=== PATIENT | female | born 1945 | race Caucasian/White ===

== ENCOUNTER → 2016-12-13 | Outpatient (CLI) | payer OTHER ==
[~2016-12-13] MED LIST: ADVIN10/60 INH; ASPI1TAB83 PO; CLTP PO; CNT PO; MELO15TA3 PO; MOME50SP5; SYN112 PO
== END | disposition home or self-care (01) ==
LOC: C.RDSM 12:52
PROVIDERS: ATTEND Orthopaedic Surgery Sports Medicine
DX: Z96.653 Presence of artificial knee joint, bilateral (principal)

== ENCOUNTER 2024-05-21 12:32 | Inpatient (IN) ==
--- NOTE | 2024-05-21 13:46 | Electrocardiogram Report ---
Test Reason : Blood Pressure : */* mmHG Vent. Rate : 97 BPM Atrial Rate : 97 BPM P-R Int : 150 ms QRS Dur : 82 ms QT Int : 334 ms P-R-T Axes : 53 67 66 degrees QTcB Int : 424 ms Normal sinus rhythm Normal ECG Confirmed by Demetrius Tariq ([id number]) on 05/21/2024 1:46:22 PM Referred By: Confirmed By: Demetrius Tariq
[2024-05-21 13:49] LABS: Basophils # (auto) 0.03 K/uL (0.00-0.20); Basophils % (auto) 0.3 %; Eosinophils # (auto) 0.05 K/uL (0.00-0.50); Eosinophils % (auto) 0.5 %; Hematocrit (blood only) 41.7 % (37.0-47.0); Hemoglobin 13.3 g/dl (12.0-16.0); Immature Granulocytes # (auto) 0.04 K/uL (0.01-0.20); Immature Granulocytes % (auto) 0.4 %; Lymphocytes # (auto) 2.35 K/uL (1.20-3.40); Lymphocytes % (auto) 21.6 %; Mean Corpuscular Hemoglobin 26.5 pg (25.0-34.0); Mean Corpuscular Hgb Conc 31.9 g/dL (32.0-36.0); Mean Corpuscular Volume 83.2 fL (80.0-100.0); Mean Platelet Volume 10.9 fL (9.4-12.4); Monocytes # (auto) 0.97 K/uL (0.11-0.59); Monocytes % (auto) 8.9 %; Neutrophils # (auto) 7.44 K/uL (1.40-6.50); Neutrophils % (auto) 68.3 %; Platelet Count 111 K/uL (130-400); RDW Coefficient of Variation 16.8 % (11.5-14.5); RDW Standard Deviation 50.1 fL (36.4-46.3); Red Blood Count 5.01 M/uL (4.20-5.40); White Blood Count 10.88 K/ul (4.8-10.8)
[2024-05-21 14:04] LABS: Albumin Globulin Ratio 1.3 (0.9-2); Albumin Level 3.2 gm/dl (3.4-5.0); BUN Creatinine Ratio 19.7 (10-20); Bilirubin,Total 0.5 mg/dl (0.2-1.0); Calcium 8.9 mg/dl (8.6-10.3); Creatinine Clr Calc Pharmacy 40.8 ml/min; Globulin 2.5 gm/dl (2.5-4.0); Potassium 3.9 mmol/L (3.5-5.1); Total Protein 5.7 gm/dl (6.0-8.3)
[2024-05-21 14:13] LABS: Troponin I High Sensitivity 53.2 pg/ml (0-14)
--- NOTE | 2024-05-21 14:18 | XRay Report ---
XR chest 1V portable HISTORY: 79 years-old Female Dyspnea acute shortness of breath COMPARISON: 01/08/2024 TECHNIQUE: AP view of the chest FINDINGS: Cardiac silhouette is enlarged. Mild chronic interstitial coarsening. No pneumothorax, pleural effusi on or lobar airspace consolidation. Bones appear grossly intact. IMPRESSION: Cardiomegaly without acute process. ACT 112: Negative or not required by law. The above report was generated using voice recognition software. It may contain grammatical, syntax o r spelling errors. Electronically signed by: Magdi Peña M.D. 05/21/2024 2:17 PM
[2024-05-21 14:30] LABS: Adenovirus PCR Not Detected (NotDetected); Bordetella parapertussis PCR Not Detected (NotDetected); Bordetella pertussis PCR Not Detected (NotDetected); Chlamydia pneumoniae PCR Not Detected (NotDetected); Coronavirus 229E PCR Not Detected (NotDetected); Coronavirus CoV-2 (COVID19)PCR Not Detected (NotDetected); Coronavirus HKU1 PCR Not Detected (NotDetected); Coronavirus NL63 PCR Not Detected (NotDetected); Coronavirus OC43PCR Not Detected (NotDetected); Human Metapneumovirus PCR Not Detected (NotDetected); Influenza A PCR Not Detected (NotDetected); Influenza B PCR Not Detected (NotDetected); Mycoplasma pneumoniae PCR Not Detected (NotDetected); Parainfluenza Virus 1 PCR Not Detected (NotDetected); Parainfluenza Virus 2 PCR Not Detected (NotDetected); Parainfluenza Virus 3 PCR Not Detected (NotDetected); Parainfluenza Virus 4 PCR Not Detected (NotDetected); Respiratory Syncytial VirusPCR Not Detected (NotDetected); Rhinovirus/Enterovirus PCR Not Detected (NotDetected)
[2024-05-21] MEDS: OPTIRAY 320 125ml IV ONE (14:39)
--- NOTE | 2024-05-21 14:39 | Emergency Department Note ---
Impression & Plan Pulmonary embolism, Elevated troponin, Hypoxia ED Provider Note NAME: KATHY GARNER AGE: 79 SEX: F : 1945 ARRIVES VIA: Walk-In INFORMANT: Patient, ED PROVIDER(S): Russ Bronson MD CHIEF COMPLAINT: Shortness of breath HPI: This is 79-year-old female with history of asthma/pulm hypertension presented for shortness of breath. Patient notes over the past 1 week she has had increasing difficulty walking distances. She notes that whenever she does walk she feels short of breath and has to stop. At this time she is medically get more than 10 feet. This is progressively worsened. She has no significant leg swelling. No fever, chills, nausea or vomiting. No cough or congestion. No wheezing. ROS: See above HPI for pertinent positives & negatives. A total of 10 systems reviewed and were otherwise negative. PAST MEDICAL HISTORY: See Below PAST SURGICAL HISTORY: See Below FAMILY HISTORY: See Below SOCIAL HISTORY: See Below HOME MEDICATIONS: See Below ALLERGIES: See Below VITALS: See Below PHYSICAL EXAMINATION: General: resting comfortably in no acute distress with elevated troponin Head: Normocephalic and atraumatic Eyes: Normal inspection, extraocular muscles intact Ear, nose, throat: Normal external exam Neck: Normal range of motion Respiratory: lungs clear to auscultation bilaterally Cardiovascular: Regular rate/rhythm, no murmur GI: soft, nontender, no guarding or rebound Extremities: nontender, moves all extremities Neuro: The patient awake and alert, appropriately conversive, no focal deficits, symmetric faces Skin: Warm, dry, and intact MEDICAL DECISION MAKING: This is 79-year-old female presenting for shortness of breath. Consider pulm hypertension, PE, pneumonia, respiratory infection, CHF. -Blood work reveals creatinine 1.32, isolated ALT elevation. Negative bio fire. Troponin is elevated at 53. -Chest x-ray Independently interpreted by me reveals cardiomegaly without pneumothorax/pleural effusion -With patient's elevated troponin consider PE. Will order CTA PE protocol. Patient denies any current pleurisy and she not tachycardic however -CT imaging does reveal segmental PEs bilaterally with evidence of right heart strain upon independent trepidation. Heparin ordered at this time with bolus and drip -Patient care discussed with GINO Brown for [facility] service. Patient admitted to Dr. Martinez Differential diagnosis: Hypertension, PE, pneumonia, respiratory infection, CHF, ACS ER treatment provided: See below Independent History obtained from: [facility] interpreted by me: ECG: ECG independently interpreted by me with normal sinus rhythm, rate of 97, normal axis, normal NM, normal QRS, normal QTc, no ST segment elevations consistent with STEMI criteria Cardiac Monitoring: An order was placed for continuous cardiac monitoring. The monitor shows a rate of 90 with sinus rhythm. Laboratory studies: As stated above and show below. Imaging studies: See below. Critical Care Note: I have personally spent 45 minutes of critical care time in the direct management of this patient. This includes bedside care, interpretation of diagnostic studies, and testing, discussion with consultants, patient, and family members, and other required patient management activities. This 45 minutes is in excess of all separately billable procedures. Past Med/Surg History Problem List (Updated 05/21/24 @ 15:29 by Russ Bronson MD) Hypoxia (Acute) Elevated troponin (Acute) Pulmonary embolism (Acute) Obesity Allergic rhinitis with postnasal drip Asthma Social History Smoking Status: Never smoker Feels Safe at Home: Yes Allergies Allergies Allergy/AdvReac Type Severity Reaction Status Date / Time lisinopril AdvReac Cough Verified 04/02/24 15:46 Dust Mite Extract Allergy Mild NASAL Uncoded 04/02/24 15:46 CONGESTION Home Meds Home Medications Medication Instructions Recorded Confirmed Calcium/Vitamin D (Caltrate 600 1 tab PO BID ##0 05/24/11 04/02/24 Plus *) Multivitamins/Minerals (Centrum *) 1 tab PO DAILY ##0 05/24/11 04/02/24 Levothyroxine (Synthroid *) 125 mcg PO DAILY ##0 01/02/24 04/02/24 albuterol 90 mcg/actuation aerosol mcg inhalation 01/02/24 04/02/24 inhaler atorvastatin 20 mg tablet 20 mg PO DAILY 01/02/24 04/02/24 tamoxifen 20 mg tablet 20 mg PO DAILY 01/02/24 04/02/24 losartan 100 mg tablet 100 mg PO DAILY 04/02/24 04/02/24 albuterol sulfate 2.5 mg/3 mL 2.5 mg inhalation DIRECTED 05/21/24 (0.083 %) solution for nebulization fluticasone fur. 200 mcg-umeclid 1 inh inhalation DIRECTED 05/21/24 62.5 mcg-vilant 25 mcg inhalat.powder (Trelegy Ellipta) Previous Rx's Medication Instructions Recorded montelukast 10 mg tablet 10 mg PO QPM #30 tabs 04/09/24 (Singulair) budesonide 160 mcg-glycopyr 9 2 inh inhalation BID #10.7 grams 04/22/24 mcg-formot 4.8 mcg/actuation HFA inhaler ([employer]) Results & Data (ED) Vital Signs Vital Signs - 24 hr 05/21/24 12:36 05/21/24 12:44 05/21/24 12:44 Temperature 36.7 C Temperature Source Skin Pulse Rate 100 H Pulse Rate [Apical] 97 H Respiratory Rate 18 20 Blood Pressure 127/80 Blood Pressure [Right Calf] Blood Pressure Mean 95 Blood Pressure Mean [Right Calf] Pulse Oximetry 99 93 95 Oxygen Delivery Method Room Air Room Air Room Air Oxygen Flow Rate 0 Sepsis Recent Fever Within 48 Hours No Sepsis New/Unexplained Change in Mental Status No Sepsis Action Taken by Nursing No Action Required 05/21/24 12:57 05/21/24 13:30 05/21/24 14:39 Temperature Temperature Source Pulse Rate 95 H 90 Pulse Rate [Apical] 99 H Respiratory Rate 20 19 Blood Pressure Blood Pressure [Right Calf] 189/92 H Blood Pressure Mean Blood Pressure Mean [Right Calf] 124 Pulse Oximetry 92 91 Oxygen Delivery Method Room Air Room Air Oxygen Flow Rate Sepsis Recent Fever Within 48 Hours Sepsis New/Unexplained Change in Mental Status Sepsis Action Taken by Nursing Laboratory Data 05/21/24 13:33 05/21/24 13:33 Lab Results 05/21/24 Range/Units 13:33 WBC 10.88 H (4.8-10.8) K/ul RBC 5.01 (4.20-5.40) M/uL Hgb 13.3 (12.0-16.0) g/dl Hct 41.7 (37.0-47.0) % MCV 83.2 (80.0-100.0) fL MCH 26.5 (25.0-34.0) pg MCHC 31.9 L (32.0-36.0) g/dL RDW Std Deviation 50.1 H (36.4-46.3) fL RDW Coeff of Kiko 16.8 H (11.5-14.5) % Plt Count 111 L (130-400) K/uL MPV 10.9 (9.4-12.4) fL Immature Gran % (Auto) 0.4 % Neut % (Auto) 68.3 % Lymph % (Auto) 21.6 % Meigs % (Auto) 8.9 % Eos % (Auto) 0.5 % Baso % (Auto) 0.3 % Neut # (Auto) 7.44 H (1.40-6.50) K/uL Lymph # (Auto) 2.35 (1.20-3.40) K/uL Meigs # (Auto) 0.97 H (0.11-0.59) K/uL Eos # (Auto) 0.05 (0.00-0.50) K/uL Baso # (Auto) 0.03 (0.00-0.20) K/uL Immature Gran # (Auto) 0.04 (0.01-0.20) K/uL Sodium 141 (136-145) mmol/L Potassium 3.9 (3.5-5.1) mmol/L Chloride 109 H (98-107) mmol/L Carbon Dioxide 24 (21-32) mmol/L Anion Gap 8 (3-11) BUN 26 H (6-23) mg/dl Creatinine 1.32 H (0.6-1.2) mg/dl Est Cr Clr Drug Dosing 40.8 ml/min eGFR 41.58 BUN/Creatinine Ratio 19.7 (10-20) Glucose 125 H (70-99(Fasting)) mg/dl Calcium 8.9 (8.6-10.3) mg/dl Total Bilirubin 0.5 (0.2-1.0) mg/dl AST 26 (13-39) U/L ALT 79 H (7-52) U/L Alkaline Phosphatase 49 (34-104) U/L Troponin I High Sens 53.2 H* (0-14) pg/ml Total Protein 5.7 L (6.0-8.3) gm/dl Albumin 3.2 L (3.4-5.0) gm/dl Globulin 2.5 (2.5-4.0) gm/dl Albumin/Globulin Ratio 1.3 (0.9-2) Adenovirus (PCR) Not Detected (NotDetected) B. pertussis DNA (PCR) Not Detected (NotDetected) B.parapertussis DNA PCR Not Detected (NotDetected) C. pneumoniae DNA (PCR) Not Detected (NotDetected) Coronavirus OC43 (PCR) Not Detected (NotDetected) Coronavirus HKU1 (PCR) Not Detected (NotDetected) Coronavirus 229E (PCR) Not Detected (NotDetected) SARS-CoV-2 (PCR) Not Detected (NotDetected) Coronavirus NL63 (PCR) Not Detected (NotDetected) Human Metapneumovir PCR Not Detected (NotDetected) Influenza Type A (PCR) Not Detected (NotDetected) Influenza Type B (PCR) Not Detected (NotDetected) M. pneumoniae (PCR) Not Detected (NotDetected) Parainfluenza 1 (PCR) Not Detected (NotDetected) Parainfluenza 2 (PCR) Not Detected (NotDetected) Parainfluenza 3 (PCR) Not Detected (NotDetected) Parainfluenza 4 (PCR) Not Detected (NotDetected) RSV (PCR) Not Detected (NotDetected) Entero/Rhino (PCR) Not Detected (NotDetected) Administered Medications Heparin Sodium/Dextrose (Heparin Sodium/Dextrose) 25,000 units in 500 mls @ 26 mls/hr IV .[id number] [facility]; Protocol Stop: 06/20/24 14:59 Last Admin: 05/21/24 15:11 Dose: 1,300 units/hr, 26 mls/hr Documented By: CONSTANZA Co-signed By: DEIDRE Discontinued Medications Heparin Sodium (Porcine) (Heparin Sod (Porcine) 1000 Unit/Ml) 6,000 units IV NOW ONE Stop: 05/21/24 15:01 Last Admin: 05/21/24 15:09 Dose: 6,000 units Documented By: CONSTANZA Co-signed By: DEIDRE Ioversol (Optiray 320 125ml) 120 ml IV ONCE ONE Stop: 05/21/24 14:40 Last Admin: 05/21/24 14:39 Dose: 120 ml Documented By: JAR Imaging Data Radiologist's Impression: Chest X-Ray 05/21/24 13:12 XR chest 1V portable HISTORY: 79 years-old Female Dyspnea acute shortness of breath COMPARISON: 01/08/2024 TECHNIQUE: AP view of the chest FINDINGS: Cardiac silhouette is enlarged. Mild chronic interstitial coarsening. No pneumothorax, pleural effusion or lobar airspace consolidation. Bones appear grossly intact. IMPRESSION: Cardiomegaly without acute process. ACT 112: Negative or not required by law. The above report was generated using voice recognition software. It may contain grammatical, syntax or spelling errors. Electronically signed by: Magdi Peña M.D. 05/21/2024 2:17 PM Chest CTA 05/21/24 14:14 CT angio chest PE protocol CT DOSE: 781.11 mGy.cm HISTORY: 79 years-old Female with PE, pulm HTN, trop elevation. Acute shortness of breath TECHNIQUE: Multiple CTA images of the chest were obtained after the intravenous administration of 120 ml Optiray. Coronal and sagittal MIPS were obtained from the axial data set and were submitted for review. All measurements were obtained according to NASCET criteria. A dose lowering technique was utilized adhering to the principles of ALARA. COMPARISON: Chest radiograph of same day, chest CT from outside facility 02/20/2024 FINDINGS: CTA: Moderate cardiomegaly, notably with dilation of the right heart structures. There is straightening of the reticular septum. Dilated pulmonary artery measuring 4 cm. Trace pericardial effusion with mild coronary artery calcifications. No thoracic aortic aneurysm. Bilateral pulmonary emboli noted involving the lobar, segmental and subsegmental branches, right greater than left. No saddle pulmonary embolus. CT CHEST: No thyroid nodule or lymphadenopathy. No pneumothorax, pleural effusion or airspace consolidation identified to suggest infarct. There are no suspicious pulmonary nodules or masses identified. Central airways are patent. Small hernia. Cholelithiasis. Unremarkable soft tissues. Healed chronic mid sternal body fracture No acute fracture. IMPRESSION: 1. Bilateral pulmonary emboli with evidence of right heart strain. 2. Cardiomegaly with pulmonary arterial hypertension. 3. No pleural effusion or pulmonary infarct. 4. Cholelithiasis. ACT 112: Negative or not required by law. The above report was generated using voice recognition software. It may contain grammatical, syntax or spelling errors. Electronically signed by: Magdi Peña M.D. 05/21/2024 2:59 PM Discharge Plan Visit Data Chief Complaint: Shortness of Breath/Dyspnea Stated Complaint: SOB ED Provider: Russ Bronson Discharge Problem: Pulmonary embolism, Elevated troponin, Hypoxia Forms Stand Alone Forms: [facility] Prescriptions Prescriptions: No Action Calcium/Vitamin D (Caltrate 600 Plus *) tablet 1 tab PO BID Qty: 0 Multivitamins/Minerals (Centrum *) 1 TAB tablet 1 tab PO DAILY Qty: 0 Levothyroxine (Synthroid *) 0.112 MG tablet 125 mcg PO DAILY Qty: 0 Patient Comments: 125 mcg for five days and half of a tablet for the other 2 days. Breztri Aerosphere 160-9-4.8 mcg/actuation HFA aerosol inhaler 2 inh inhalation BID Qty: 10.7 6RF tamoxifen 20 mg tablet 20 mg PO DAILY atorvastatin 20 mg tablet 20 mg PO DAILY albuterol 90 mcg/actuation aerosol inhalation losartan 100 mg tablet 100 mg PO DAILY montelukast [Singulair] 10 mg tablet 10 mg PO QPM Qty: 30 6RF albuterol sulfate 2.5 mg /3 mL (0.083 %) solution for nebulization 2.5 mg inhalation DIRECTED Trelegy Ellipta 200-62.5-25 mcg blister with device 1 inh INHALATION DIRECTED Referrals Referrals: Good Sepulveda MD [Primary Care Provider] -
[2024-05-21] MEDS ORDERED: HEPARIN SOD (PORCINE) 1000 UNIT/ML IV ONE (14:59)
--- NOTE | 2024-05-21 15:01 | CT Scan Report ---
CT angio chest PE protocol CT DOSE: 781.11 mGy.cm HISTORY: 79 years-old Female with PE, pulm HTN, trop elevation. Acute shortness of breath TECHNIQUE: Multiple CTA images of the chest were obtained after the intravenous administration of 120 ml Optiray. Coronal and sagittal MIPS were obtained from the axial data set and were submitted for review. All measurements were obtained according to NASCET criteria. A dose lowering technique was u tilized adhering to the principles of ALARA. COMPARISON: Chest radiograph of same day, chest CT from outside facility 02/20/2024 FINDINGS: CTA: Moderate cardiomegaly, notably with dilation of the right heart structures. There is straightening of the reticular septum. Dilated pulmonary artery measuring 4 cm. Trace pericardial effusion with mild coronary artery calcifications. No thoracic aortic aneurysm. Bilateral pulmonary emboli noted involvi ng the lobar, segmental and subsegmental branches, right greater than left. No saddle pulmonary embol us. CT CHEST: No thyroid nodule or lymphadenopathy. No pneumothorax, pleural effusion or airspace consolidation shelli ntified to suggest infarct. There are no suspicious pulmonary nodules or masses identified. Central a irways are patent. Small hernia. Cholelithiasis. Unremarkable soft tissues. Healed chronic mid sterna l body fracture No acute fracture. IMPRESSION: 1. Bilateral pulmonary emboli with evidence of right heart strain. 2. Cardiomegaly with pulmonary arterial hypertension. 3. No pleural effusion or pulmonary infarct. 4. Cholelithiasis. ACT 112: Negative or not required by law. The above report was generated using voice recognition software. It may contain grammatical, syntax o r spelling errors. Electronically signed by: Magdi Peña M.D. 05/21/2024 2:59 PM
[2024-05-21] MEDS: HEPARIN SOD (PORCINE) 1000 UNIT/ML IV ONE (15:09)
[2024-05-21] MEDS: HEPARIN SODIUM/DEXTROSE 25,000 UNITS/500 ML BAG IV SCH (15:11)
[2024-05-21 15:36] LABS: Partial Thromboplastin Ratio 0.9; Partial Thromboplastin Time 23 Seconds (21-31); Prothrombin Time 11.1 Seconds (9.0-12.0)
--- NOTE | 2024-05-21 15:41 | History & Physical Report ---
Date of Service May 21, 2024 Assessment & Plan (1) Pulmonary embolism: (2) Elevated troponin: (3) Pulmonary HTN: (4) Asthma: (5) Obesity: (6) Hypothyroidism: (7) CKD (chronic kidney disease), stage III: Plan This is a 79yo F with a PMH of asthma and pulm HTN following with Dr. Powell, CKD III, history of breast cancer on tamoxifen, hypothyroidism and other medical problems listed below who presents with worsening SOB and was found to have bilateral PEs. Bilateral PEs Pulm HTN Elevated troponin Progressive dyspnea on exertion x [address] Powell for h/o asthma, recent CT chest and echo from 04/23/24 with evidence of pulm HTN Echo 04/23/24 - normal systolic function with EF 55-60%, no wall motion abnormalities. RV moderately dilated with pressure severely increased at 75mmhg Chest CTA today with bilateral pulmonary emboli with evidence of right heart strain, cardiomegaly with pulmonary arterial hypertension EKG with NSR at 97 bpm, no ST elevation Discussed with Dr. Li - no need for repeat echo at this time Pulm consult, continue IV heparin, saturating at 93% on room air Initial trop 53.2 in setting of R heart strain as above, monitor on tele Venous doppler to exclude DVTs History of breast cancer Status post mastectomy Continue tamoxifen CKD III Noted in outpatient progress note, baseline Cr unknown but 1.32 today Received IV contrast for CT PE Repeat BMP in AM - will hold losartan until AM labs result Hypothyroidism Continue levothyroxine DVT Ppx: IV heparin Code status: FULL PCP: Coco Dispo: Admitted to PCU Patient seen in collaboration with Dr. Martinez. Please see addendum. I spent a total of 75 minutes coordinating, documenting, and providing care for this patient excluding time spent in the performance of separately billed services. History of Present Illness Chief Complaint: SOB Primary Care Provider: Good Sepulveda MD This is a 79yo F with a PMH of asthma and pulm HTN following with Dr. Powell, CKD III, history of breast cancer on tamoxifen, hypothyroidism and other medical problems listed below who presents with worsening SOB. Endorses worsening SOB over the past week and is significantly dyspneic after walking just 10 feet. Denies any recent URI, no cough or congestion, CP or palpitations. Receives primary care in [place] and follows with Dr. Powell for asthma. Had a CT chest in Mar 2024 that was concerning for Pulm HTN so echo performed 04/23/24 revealing normal systolic function with EF 55-60%, no wall motion abnormalities. RV moderately dilated with pressure severely increased at 75mmhg. Non-smoker. On tamoxifen for h/o breast cancer s/p bilateral mastectomy. Allergies Allergy/AdvReac Type Severity Reaction Status Date / Time lisinopril AdvReac Cough Verified 04/02/24 15:46 Dust Mite Extract Allergy Mild NASAL Uncoded 04/02/24 15:46 CONGESTION Home Medications Medication Instructions Recorded Confirmed Type Calcium/Vitamin D (Caltrate 600 1 tab PO BID ##0 05/24/11 05/21/24 History Plus *) Multivitamins/Minerals (Centrum *) 1 tab PO DAILY ##0 05/24/11 05/21/24 History albuterol 90 mcg/actuation aerosol 180 mcg inhalation Q6H PRN sob 01/02/24 05/21/24 History inhaler atorvastatin 20 mg tablet 20 mg PO DAILY 01/02/24 05/21/24 History tamoxifen 20 mg tablet 20 mg PO DAILY 01/02/24 05/21/24 History losartan 100 mg tablet 100 mg PO HS 04/02/24 05/21/24 History montelukast 10 mg tablet 10 mg PO QPM #30 tabs 04/09/24 05/21/24 Rx (Singulair) budesonide 160 mcg-glycopyr 9 2 inh inhalation BID #10.7 grams 04/22/24 05/21/24 Rx mcg-formot 4.8 mcg/actuation HFA inhaler (Breztri Aerosphere) albuterol sulfate 2.5 mg/3 mL 2.5 mg inhalation DAILY PRN sob 05/21/24 05/21/24 History (0.083 %) solution for nebulization diclofenac sodium 1 % topical gel 2 g topical QID PRN Pain 05/21/24 05/21/24 History levothyroxine 125 mcg tablet 62.5 mcg PO MOWE@0700 05/21/24 05/21/24 History levothyroxine 125 mcg tablet 125 mcg PO SUTUTHFRSA@0700 05/21/24 05/21/24 History mometasone 50 mcg/actuation nasal 2 spray intranasal DAILY PRN 05/21/24 05/21/24 History spray allergies Past Med/Surg History Problem List (Updated 05/21/24 @ 16:48 by Stephanie Bolaños PA-C) Elevated troponin (Acute) Pulmonary embolism (Acute) Medical History (Updated 05/21/24 @ 16:48 by Stephanie Bolaños PA-C) Pulmonary HTN CKD (chronic kidney disease), stage III Hypothyroidism Obesity Allergic rhinitis with postnasal drip Asthma Surgical History H/O mastectomy Family History Other Hypertension Denies family history of Lung cancer Social History Smoking Status: Never smoker Feels Safe at Home: Yes Review of Systems Review of Systems: At least ten systems reviewed and negative except as noted in the HPI. Physical Exam Physical Exam: General Appearance: WD/WN, vitals as above, NAD, conversational dyspnea Head: normocephalic, atraumatic Eyes: normal inspection, PERRL, conjunctivae normal, anicteric sclerae ENT: external ear and nose normal, oropharynx normal Neck: normal visual inspection, trachea midline, no thyromegaly Respiratory: increased respiratory effort, lungs clear to auscultation, no wheeze, rales, rhonchi Cardiovascular: tachycardic rate, regular rhythm, normal peripheral pulses, trace BLE edema L>R . Vessels: no JVD Chest: normal inspection of chest Abdomen/GI: normal bowel sounds, soft, nontender, no hepatosplenomegaly Extremities/Musculoskeletal: no cyanosis or clubbing, extremities motor strength 5/5 Neurologic: PERRL, EOMI, accommodation nl, no face palsy, no dysarthria, CN's II-XI intact bilaterally and moves all extremities Psychiatric: A+Ox3, euthymic affect Skin: no rashes, normal color, warm/dry Results & Data Results & Data Vital Signs (Past 12 Hours) Vital Signs Temp Pulse Pulse Resp BP BP Pulse Ox 05/21/24 14:39 99 H 19 189/92 H 91 05/21/24 13:30 90 20 92 05/21/24 12:57 95 H 05/21/24 12:44 97 H 20 95 05/21/24 12:44 93 05/21/24 12:36 36.7 C 100 H 18 127/80 99 O2 Del Method O2 Flow Rate 05/21/24 14:39 Room Air 05/21/24 13:30 Room Air 05/21/24 12:57 05/21/24 12:44 Room Air 05/21/24 12:44 Room Air 0 05/21/24 12:36 Room Air Laboratory Results Short CBC 05/21/24 Range/Units 13:33 WBC 10.88 H (4.8-10.8) K/ul Hgb 13.3 (12.0-16.0) g/dl Hct 41.7 (37.0-47.0) % Plt Count 111 L (130-400) K/uL BMP 05/21/24 13:33 Sodium 141 Potassium 3.9 Chloride 109 H Carbon Dioxide 24 BUN 26 H Creatinine 1.32 H Glucose 125 H Calcium 8.9 Liver Function 05/21/24 Range/Units 13:33 Total Bilirubin 0.5 (0.2-1.0) mg/dl AST 26 (13-39) U/L ALT 79 H (7-52) U/L Alkaline Phosphatase 49 (34-104) U/L Albumin 3.2 L (3.4-5.0) gm/dl Supervising Physician Co-Signing Physician Notes Attending addendum: The patient was seen and examined in emergency room in presence of the friend She has been complaining of shortness of breath for a while but the condition got worse for the last 1 week. Denies any chest pain or palpitation associated with it No cough, hemoptysis and no phlegm and no fever and or chills Denies any calf swelling or any calf pain. On examination Anxious but no apparent distress at rest Blood pressure remains on the upper side otherwise afebrile and hemodynamically stable Chestclear to auscultate bilaterally HeartS1-S2, regular Abdomenbenign Extremitiesno edema CNSalert, awake and oriented x 3. No focal sensory or motor deficit appreciated Her admission labs, EKG and imaging studies reviewed History of bilateral breast cancer status post mastectomy and on tamoxifen Noted to have bilateral pulmonary embolism segmental and subsegmental with heart strain Will get ultrasound to exclude DVT Started on intravenous heparin and discussed about oral anticoagulation on discharge. She prefers to have newer DOACs Agree with assessment plan as outlined above by Stephanie Bolaños PA-C and take the full responsibility of the care Dr. Bettina Martinez
[2024-05-21] MEDS ORDERED: DICLOFENAC SOD 1% GEL 100 GM TUBE EXT PRN (16:43)
[2024-05-21] MEDS ORDERED: ALBUTEROL 0.083% NEBU SOLN 3 ML VIAL INH PRN (16:43)
[2024-05-21] MEDS: Heparin IV Adult Wt-Based Standard w/ INITIAL Bolus Protocol IV STA (16:45)
[2024-05-21] MEDS ORDERED: POLYETHYLENE (MIRALAX) 17 GM PACK PO PRN (19:38)
[2024-05-21] MEDS ORDERED: ACETAMINOPHEN 325 MG TAB PO PRN (19:38)
[2024-05-21] MEDS ORDERED: ONDANSETRON INJ 2 MG/ML 2 ML VIAL IV PRN (19:38)
[2024-05-21] MEDS: MONTELUKAST SODIUM 10 MG TABLET PO SCH (20:21)
[2024-05-21] MEDS: CALCIUM 600MG + VIT D 400 IU TAB PO SCH (20:21)
[2024-05-21] MEDS ORDERED: NON-FORMULARY MEDICATION (Budesonide-Glycopyr-Formoterol [Breztri Aerosphere] 160-9-4.8 mc INH SCH (21:00)
[2024-05-21] MEDS ORDERED: LOSARTAN POTASSIUM 50 MG TAB PO SCH (21:00)
[2024-05-21] MEDS: ALBUTEROL HFA 8 GM INHALER INH PRN (21:51)
[2024-05-21 21:56] LABS: ANTI-Xa, UFH(UnfractionatedHep 0.95 IU/ml (0.3-0.7)
[2024-05-22] MEDS: LEVOTHYROXINE SODIUM 125 MCG TABLET PO SCH (06:24)
[2024-05-22 06:33] LABS: Hemoglobin 12.5 g/dl (12.0-16.0); Mean Corpuscular Hemoglobin 26.7 pg (25.0-34.0); Mean Corpuscular Hgb Conc 32.9 g/dL (32.0-36.0); Mean Corpuscular Volume 81.2 fL (80.0-100.0); Mean Platelet Volume 11.3 fL (9.4-12.4); Platelet Count 128 K/uL (130-400); RDW Coefficient of Variation 16.7 % (11.5-14.5); RDW Standard Deviation 48.5 fL (36.4-46.3); Red Blood Count 4.68 M/uL (4.20-5.40); White Blood Count 9.33 K/ul (4.8-10.8)
--- NOTE | 2024-05-22 06:42 | Ultrasound Report ---
US venous doppler LE BI CLINICAL HISTORY: bilat PEs TECHNIQUE: Bilateral lower extremity real-time compression venous ultrasound with Color Doppler imagi ng. Utilizing real-time ultrasonic imaging multiple real time high-resolution ultrasonic images with compression and noncompression maneuvers of the deep venous system in addition to color doppler imagi ng were performed from the common femoral vein through the proximal calf veins. COMPARISON: None available at the time of this dictation. FINDINGS/IMPRESSION: No deep venous thrombus, there is normal compressibility of the deep venous system from the common fe moral vein through the proximal calf veins. No superficial venous thrombosis is identified. ACT 112: Negative or not required by law. Electronically signed by: Flavio Marroquin M.D. 05/22/2024 6:41 AM
[2024-05-22 06:50] LABS: BUN Creatinine Ratio 16.8 (10-20); Calcium 9.1 mg/dl (8.6-10.3); Creatinine Clr Calc Pharmacy 41.5 ml/min; Potassium 3.9 mmol/L (3.5-5.1)
[2024-05-22 07:04] LABS: ANTI-Xa, UFH(UnfractionatedHep 0.46 IU/ml (0.3-0.7)
[2024-05-22 07:51] LABS: Appearance Urine Clear (Clear); Bacteria Urine Automated None Seen (None Seen); Bilirubin Urine Negative (Negative); Blood Urine Negative (Negative); Cast Urine Automated 0-2 /lpf (0-2); Color Urine Yellow; Glucose Urine UA Negative (Negative); Ketones Urine Negative (Negative); Leukocyte Esterase Urine 2+ (Negative); Nitrite Urine Negative (Negative); Protein Urine Negative (Negative); RBC Urine Automated 0-2 /hpf (0-2); Specific Gravity Urine > 1.045 (1.000-1.030); Urobilinogen Urine Negative (Negative); WBC Urine Automated >50 /hpf (0-5)
[2024-05-22] MEDS: FLUTICASONE FUROATE 200MCG 14 PUFFS/INHALER INH SCH (08:52)
[2024-05-22] MEDS: UMECLIDINIUM/VILANTEROL 62.5/25MCG 7 PUFFS/INHALER INH SCH (08:53)
[2024-05-22] MEDS: MULTIVITAMIN TAB PO SCH (08:53)
[2024-05-22] MEDS: ATORVASTATIN 20 MG TAB PO SCH (08:53)
[2024-05-22] MEDS: TAMOXIFEN CITRATE 10 MG TABLET PO SCH (08:53)
--- NOTE | 2024-05-22 10:04 | Pulmonary Consultation ---
Date of Consultation May 22, 2024 Assessment & Plan (1) Pulmonary embolism: (2) Pulmonary HTN: (3) Asthma: Plan Impression: 79-year-old female with history of breast cancer on tamoxifen now with multiple segmental filling defects consistent with thromboembolic disease and pulmonary hypertension. She has been initiated on anticoagulation in the form of heparin and has been hemodynamically stable. Her PESI score is elevated largely due to age and comorbid malignancy. She is hemodynamically stable. Recommendations: 1. Subacute PE: Unclear how long symptoms have been present. Would continue anticoagulation. Given that this occurred in the setting of tamoxifen and a hi story of breast cancer, could make a case for lifelong anticoagulation. Recommend consultation with medical oncology as to whether or not tamoxifen should be continued or discontinued and they can make recommendations about duration of anticoagulation although again 1 could make a case for lifelong anticoagulation. Can likely transition to DOAC at some point. Given her elevated PESI score, would observe in the hospital for 24 to 48 hours to ensure she is improving and have her get up and walk around to ensure no dizziness lightheadedness shortness of breath tachypnea syncope or presyncope. 2. Pulmonary hypertension: Given the fact that her PA pressures are still elevated, this does argue for some chronicity as an acute PE would be unlikely to cause PA pressures this high. Would recommend anticoagulation and repeating the echocardiogram in 3 months. No indication for additional pulmonary vasodilators at this point time. Would recommend diuresis to offload the right ventricle as tolerated by hemodynamics. Patient is at risk for development of chronic thromboembolic pulmonary hypertension - if PA pressures remain elevated after control of all contributing factors and adequate period of anticoagulation, consideration for right heart cath and V/Q scanning might be appropriate. 3. Hypoxemia: Wean oxygen to maintain oxygen saturations at or above 92%. The patient may require supplemental oxygen at discharge. 4. Asthma: Not bronchospastic currently. No indication for steroids. Continue bronchodilators currently with as needed albuterol. 5. Sleep disordered breathing: Patient sleep study demonstrated an AHI of 23. Would recommend that in the outpatient setting when she is stable she return to the lab for dedicated titration study. Given her PE and hypoxemia, home auto titrating CPAP would not be recommended. Patient can follow-up with Dr. Powell in the outpatient setting at discharge. Plan was discussed extensively with the patient at bedside. Questions were answered to the best my ability. She expressed understanding and is in agreement with the plan as outlined History of Present Illness Attending Physician: Pedro Puga, History of Present Illness Asked by hospitalist to assist in evaluation management of this patient admitted with bilateral PEs, pulmonary hypertension, and hypoxemic respiratory failure in the setting of asthma/pulmonary hypertension. History is obtained from discussion with the patient as well as review the electronic medical record. The patient is a 79-year-old female with a history of breast cancer status post bilateral mastectomy on tamoxifen therapy who follows with Dr. Quintanilla in the cancer center. She is established with Dr. Powell in the outpatient setting and is followed for moderate persistent asthma new (PFTs October 2023 showed an FEV1 of 86% with an FVC of 103% and ratio of 62 with normal total lung capacity and normal diffusion capacity. Spite her inhalers she had persistent issues for shortness of breath. Prior CT scan showed some enlargement of pulmonary arteries concerning for pulmonary hypertension. Repeat echocardiogram was performed through [facility] April which showed pulmonary hypertension. The patient was treated with steroids and antibiotics in the outpatient setting and failed to improve. She presented to the emergency room where she was studied with CT angiogram which showed multiple segmental and subsegmental filling defects. She was initiated and placed on heparin. The patient thinks her breathing is slightly better this morning. She has not had any syncope or presyncope. No prior history of bleeding or clotting disorders. No family history of thromboembolic disease or sudden cardiac which was unexplained. Allergies Allergy/AdvReac Type Severity Reaction Status Date / Time house dust mite Allergy Mild nasal Verified 05/22/24 01:02 congestion lisinopril AdvReac Cough Verified 04/02/24 15:46 Home Medications Medication Instructions Recorded Confirmed Type Calcium/Vitamin D (Caltrate 600 1 tab PO BID ##0 05/24/11 05/21/24 History Plus *) Multivitamins/Minerals (Centrum *) 1 tab PO DAILY ##0 05/24/11 05/21/24 History albuterol 90 mcg/actuation aerosol 180 mcg inhalation Q6H PRN sob 01/02/24 05/21/24 History inhaler atorvastatin 20 mg tablet 20 mg PO DAILY 01/02/24 05/21/24 History tamoxifen 20 mg tablet 20 mg PO DAILY 01/02/24 05/21/24 History losartan 100 mg tablet 100 mg PO HS 04/02/24 05/21/24 History montelukast 10 mg tablet 10 mg PO QPM #30 tabs 04/09/24 05/21/24 Rx (Singulair) budesonide 160 mcg-glycopyr 9 2 inh inhalation BID #10.7 grams 04/22/24 05/21/24 Rx mcg-formot 4.8 mcg/actuation HFA inhaler (Breztri Aerosphere) albuterol sulfate 2.5 mg/3 mL 2.5 mg inhalation DAILY PRN sob 05/21/24 05/21/24 History (0.083 %) solution for nebulization diclofenac sodium 1 % topical gel 2 g topical QID PRN Pain 05/21/24 05/21/24 History levothyroxine 125 mcg tablet 62.5 mcg PO MOWE@0700 05/21/24 05/21/24 History levothyroxine 125 mcg tablet 125 mcg PO SUTUTHFRSA@0700 05/21/24 05/21/24 History mometasone 50 mcg/actuation nasal 2 spray intranasal DAILY PRN 05/21/24 05/21/24 History spray allergies Patient History Medical History (Updated 05/21/24 @ 16:48 by Stephanie Bolaños PA-C) Pulmonary HTN CKD (chronic kidney disease), stage III Hypothyroidism Obesity Allergic rhinitis with postnasal drip Asthma Surgical History H/O mastectomy Family History Other Hypertension Denies family history of Lung cancer Social History Smoking Status: Never smoker Hx Alcohol Use: No Hx Substance Use: No Preferred Language: Ivorian Communication Ability: Effective Teacher Of The Handicapped Required: No Beliefs That Will Affect Care: None Current Living Situation: Alone Other Information That Helps Us Care for You: No Feels Safe at Home: Yes Safety Concerns: Feels Safe At This Time Assistive Devices: Denture - Upper, Denture - Lower, Glasses and Hearing Aid - Bilateral Assistive Devices Comment: partial dentures- upper & lower Review of Systems Review of Systems: Please refer to admission H&P. No additions or deletions Physical Exam Constitutional: WD/WN, vitals as above Neck: trachea midline, no thyromegaly Respiratory: normal respiratory effort, lungs clear to auscultation Cardiovascular: RRR, no murmur, no edema Gastrointestinal (Abdomen): normal bowel sounds, soft, nontender, no he patosplenomegaly Musculoskeletal: Extremities: extremities normal to inspection Skin: no rashes, warm and dry Neurologic: Nonfocal exam Lymphatic: no cervical lymphadenopathy Results & Data Results & Data Vital Signs (Past 12 Hours) Vital Signs Temp Pulse Pulse Resp BP BP Pulse Ox 05/22/24 09:02 05/22/24 07:10 74 05/22/24 07:09 36.3 C L 78 19 144/66 H 99 05/21/24 22:54 36.5 C 84 18 136/79 92 05/21/24 22:22 O2 Del Method O2 Flow Rate 05/22/24 09:02 Nasal Cannula 2 05/22/24 07:10 05/22/24 07:09 Nasal Cannula 2 05/21/24 22:54 Room Air 05/21/24 22:22 Room Air Diagnostic Findings Echocardiogram [facility] 04/23/2024 showed an EF of 55-60 without regional wall motion abnormalities. Right ventricle was moderately dilated with normal systolic function. Systolic pressure estimated at 75. Left atrium was dilated. Mild MR noted. IVC collapse was normal. Sleep study demonstrated moderate sleep apnea with an AHI of 23 Critical Care Results & Data Vital Signs (Past 12 Hours) Vital Signs Temp Pulse Pulse Resp BP BP Pulse Ox 05/22/24 09:02 05/22/24 07:10 74 05/22/24 07:09 36.3 C L 78 19 144/66 H 99 05/21/24 22:54 36.5 C 84 18 136/79 92 05/21/24 22:22 O2 Del Method O2 Flow Rate 05/22/24 09:02 Nasal Cannula 2 05/22/24 07:10 05/22/24 07:09 Nasal Cannula 2 05/21/24 22:54 Room Air 05/21/24 22:22 Room Air Lab & Micro Results (Past 24 Hours) RBC 4.68 M/uL (4.20-5.40) 05/22/24 WBC 9.33 K/ul (4.8-10.8) 05/22/24 Hgb 12.5 g/dl (12.0-16.0) 05/22/24 Hct 38.0 % (37.0-47.0) 05/22/24 MCV 81.2 fL (80.0-100.0) 05/22/24 MCH 26.7 pg (25.0-34.0) 05/22/24 MCHC 32.9 g/dL (32.0-36.0) 05/22/24 RDW Standard Deviation 48.5 fL (36.4-46.3) H 05/22/24 RDW Coefficient of Variation 16.7 % (11.5-14.5) H 05/22/24 Plt Count 128 K/uL (130-400) L 05/22/24 MPV 11.3 fL (9.4-12.4) 05/22/24 Neutrophils (%) (Auto) 68.3 % 05/21/24 Lymphocytes (%) (Auto) 21.6 % 05/21/24 Monocytes # (Auto) 0.97 K/uL (0.11-0.59) H 05/21/24 Eosinophils # (Auto) 0.05 K/uL (0.00-0.50) 05/21/24 Immature Granulocyte % (Auto) 0.4 % 05/21/24 Neutrophils # (Auto) 7.44 K/uL (1.40-6.50) H 05/21/24 Lymphocytes # (Auto) 2.35 K/uL (1.20-3.40) 05/21/24 Monocytes # (Auto) 0.97 K/uL (0.11-0.59) H 05/21/24 Eosinophils # (Auto) 0.05 K/uL (0.00-0.50) 05/21/24 Basophils # (Auto) 0.03 K/uL (0.00-0.20) 05/21/24 Immature Granulocyte # (Auto) 0.04 K/uL (0.01-0.20) 4 Na 140 mmol/L (136-145) 05/22/24 K 3.9 mmol/L (3.5-5.1) 05/22/24 Cl 109 mmol/L (98-107) H 05/22/24 CO2 25 mmol/L (21-32) 05/22/24 Anion Gap 6 (3-11) 05/22/24 BUN 21 mg/dl (6-23) 05/22/24 Creatinine 1.25 mg/dl (0.6-1.2) H 05/22/24 BUN/Creatinine Ratio 16.8 (10-20) 05/22/24 Glu 103 mg/dl (70-99(Fasting)) H 05/22/24 Ca 9.1 mg/dl (8.6-10.3) 05/22/24 Total Bilirubin 0.5 mg/dl (0.2-1.0) 05/21/24 AST 26 U/L (13-39) 05/21/24 ALT 79 U/L (7-52) H 05/21/24 Alkaline Phosphatase 49 U/L (34-104) 05/21/24 TP 5.7 gm/dl (6.0-8.3) L 05/21/24 Albumin 3.2 gm/dl (3.4-5.0) L 05/21/24 Globulin 2.5 gm/dl (2.5-4.0) 05/21/24 Albumin/Globulin Ratio 1.3 (0.9-2) 05/21/24 Calcium Level 9.1 mg/dl (8.6-10.3) 05/22/24 05:33 Prothromb Time International Ratio 1.0 (0.9-1.1) 05/21/24 15:0 9 Diagnostic Findings (Past 24 Hours) Chest X-Ray 05/21/24 13:12 XR chest 1V portable HISTORY: 79 years-old Female Dyspnea acute shortness of breath COMPARISON: 01/08/2024 TECHNIQUE: AP view of the chest FINDINGS: Cardiac silhouette is enlarged. Mild chronic interstitial coarsening. No pneumothorax, pleural effusion or lobar airspace consolidation. Bones appear grossly intact. IMPRESSION: Cardiomegaly without acute process. ACT 112: Negative or not required by law. The above report was generated using voice recognition software. It may contain grammatical, syntax or spelling errors. Electronically signed by: Magdi Peña M.D. 05/21/2024 2:17 PM Chest CTA 05/21/24 14:14 CT angio chest PE protocol CT DOSE: 781.11 mGy.cm HISTORY: 79 years-old Female with PE, pulm HTN, trop elevation. Acute shortness of breath TECHNIQUE: Multiple CTA images of the chest were obtained after the intravenous administration of 120 ml Optiray. Coronal and sagittal MIPS were obtained from the axial data set and were submitted for review. All measurements were obtained according to NASCET criteria. A dose lowering technique was utilized adhering to the principles of ALARA. COMPARISON: Chest radiograph of same day, chest CT from outside facility 02/20/2024 FINDINGS: CTA: Moderate cardiomegaly, notably with dilation of the right heart structures. There is straightening of the reticular septum. Dilated pulmonary artery measuring 4 cm. Trace pericardial effusion with mild coronary artery calcifications. No thoracic aortic aneurysm. Bilateral pulmonary emboli noted involving the lobar, segmental and subsegmental branches, right greater than left. No saddle pulmonary embolus. CT CHEST: No thyroid nodule or lymphadenopathy. No pneumothorax, pleural effusion or airspace consolidation identified to suggest infarct. There are no suspicious pulmonary nodules or masses identified. Central airways are patent. Small hernia. Cholelithiasis. Unremarkable soft tissues. Healed chronic mid sternal body fracture No acute fracture. IMPRESSION: 1. Bilateral pulmonary emboli with evidence of right heart strain. 2. Cardiomegaly with pulmonary arterial hypertension. 3. No pleural effusion or pulmonary infarct. 4. Cholelithiasis. ACT 112: Negative or not required by law. The above report was generated using voice recognition software. It may contain grammatical, syntax or spelling errors. Electronically signed by: Magdi Peña M.D. 05/21/2024 2:59 PM Venous Doppler Study 05/21/24 16:40 US venous doppler LE BI CLINICAL HISTORY: bilat PEs TECHNIQUE: Bilateral lower extremity real-time compression venous ultrasound with Color Doppler imaging. Utilizing real-time ultrasonic imaging multiple real time high-resolution ultrasonic images with compression and noncompression maneuvers of the deep venous system in addition to color doppler imaging were performed from the common femoral vein through the proximal calf veins. COMPARISON: None available at the time of this dictation. FINDINGS/IMPRESSION: No deep venous thrombus, there is normal compressibility of the deep venous system from the common femoral vein through the proximal calf veins. No superficial venous thrombosis is identified. ACT 112: Negative or not required by law. Electronically signed by: Flavio Marroquin M.D. 05/22/2024 6:41 AM I & O Totals 24 Hours 05/21/24 05/22/24 05/23/24 06:59 06:59 06:59 Intake Total 876.367 / 876.367 178.2 / 178.2 Balance 876.367 / 876.367 178.2 / 178.2 Cumulative 05/21/24 12:32 thru 05/22/24 07:06 Intake Total 1054.567 Balance 1054.567 RT Ventilator Mngmt (Last Documented) Ventilator Ordered Settings Respiratory Rate 19 05/22/24 07:09 Ventilator - PT Measurements Respiratory Rate 19 PG Care Time/CCT Total # of Minutes Spent Total Time Spent with Patient: Total time spent is greater than 50% in coordination of care (as documented) at patient's floor/unit and/or counseling patient: Coding Level of Care Code 19451 INT INP/OBS CARE 3/75MIN Diagnoses Pulmonary embolism I26.99 Pulmonary HTN I27.20 Asthma J45.909
[2024-05-22] MEDS: APIXABAN 5 MG TABLET PO SCH (11:25)
--- NOTE | 2024-05-22 11:54 | Electrocardiogram Report ---
Test Reason : Blood Pressure : */* mmHG Vent. Rate : 71 BPM Atrial Rate : 71 BPM P-R Int : 150 ms QRS Dur : 82 ms QT Int : 382 ms P-R-T Axes : 60 74 70 degrees QTcB Int : 415 ms Normal sinus rhythm When compared with ECG of 21-May-2024 12:45, No significant change was found Confirmed by Demetrius Tariq ([id number]) on 05/22/2024 11:54:26 AM Referred By: REFERRED SELF Confirmed By: Demetrius Tariq
--- NOTE | 2024-05-22 15:45 | Hospitalist Progress Note ---
Date of Service May 22, 2024 Assessment & Plan (1) Bilateral pulmonary embolism: (2) Pulmonary HTN: (3) Acute hypoxic respiratory failure: (4) Demand ischemia of myocardium: (5) Suspected sleep apnea: (6) Asthma: (7) Obesity: (8) Hypothyroidism: (9) CKD (chronic kidney disease), stage III: Plan Patient with bilateral pulmonary emboli in the setting of tamoxifen use and history of recurrent breast cancer in the past. In the setting of history of breast cancer and tamoxifen use would recommend lifelong anticoagulation. Discussed transitioning to Eliquis, patient in agreement, will investigate cost I reviewed pulmonary consultation. With degree of pulmonary hypertension suspect patient may have been having chronic VTE/PE and also recommends lifelong anticoagulation. Will continue tamoxifen at this time patient is committed to that therapy, we will have her discuss ongoing use of tamoxifen with her oncologist when she follows up. May need to consider PET scanning or some other evaluation for reoccurrence of occult cancer as a source of her VTE. This was discussed with the patientPatient has high suspicion for sleep apnea, initial screen consistent with sleep apnea. Will do nocturnal pulse oximetry to evaluate if she needs a night oxygen especially now with the pulmonary hypertension and PEs. As per pulmonary recommendations not a candidate for immediate CPAP treatment in the setting of the pulmonary embolisms. Continue other medications as ordered Follow renal function in a.m. May need to step oxygen if that determination tomorrow to determine if needs home oxygen. Update: Patient's cost for Eliquis is approximately $200. Initial plan may be to start on Eliquis and consider transitioning to warfarin after 1 month or in that time determine if she would qualify for any other type of assistance program to keep her on the Eliquis. Admission and Anticipated Discharge Date Admission Date: May 21, 2024 Subjective Patient reports that shortness of breath has improved but still a bit more short of breath than her baseline. No chest pain. Physical Exam Physical Exam: Constitutional: Alert, obese, no distress HEENT: Mucous membranes moist. Lungs: Decreased breath sounds, prolonged CV: S1-S2, regular Abdomen: Soft, nontender, nondistended Extremities: No significant edema Neuro: No focal deficits Psych: Cooperative, normal mood Results & Data Results & Data Vital Signs (Past 12 Hours) Vital Signs Temp Pulse Pulse Resp BP Pulse Ox O2 Del Method 05/22/24 15:05 37.1 C 87 20 147/67 H 92 Room Air 05/22/24 14:00 88 05/22/24 11:41 36.7 C 82 20 173/83 H 93 Nasal Cannula 05/22/24 09:02 Nasal Cannula 05/22/24 07:10 74 05/22/24 07:09 36.3 C L 78 19 144/66 H 99 Nasal Cannula O2 Flow Rate 05/22/24 15:05 05/22/24 14:00 05/22/24 11:41 2 05/22/24 09:02 2 05/22/24 07:10 05/22/24 07:09 2 Diagnostic Findings Reviewed imaging, laboratory and diagnostic studies. Pertinent findings as below. Ultrasound lower extremities negative for DVT CBC stable Electrolytes stable Creatinine 1.25, improved Troponins reviewed Urinalysis unremarkable
[2024-05-22] MEDS: FUROSEMIDE 40 MG TAB PO ONE (16:25)
[2024-05-22] MEDS: ALBUTEROL HFA 8 GM INHALER INH PRN (19:51)
[2024-05-23] MEDS: LEVOTHYROXINE SODIUM 125 MCG TABLET PO SCH (06:21)
[2024-05-23 07:02] VITALS: BP 146/66; RESP 16; TEMP 97.7
[2024-05-23 07:55] LABS: Creatinine Clr Calc Pharmacy 37.1 ml/min; Potassium 3.8 mmol/L (3.5-5.1)
--- NOTE | 2024-05-23 09:05 | Pulmonology Progress Note ---
Date of Service May 23, 2024 Assessment & Plan (1) Pulmonary embolism: (2) Pulmonary HTN: (3) Asthma: Plan Impression: 79-year-old female with history of breast cancer on tamoxifen now with multiple segmental filling defects consistent with thromboembolic disease and pulmonary hypertension. She has been initiated on anticoagulation in the form of heparin and has been hemodynamically stable. Her PESI score is elevated largely due to age and comorbid malignancy. She is hemodynamically stable. Recommendations: 1. Subacute PE: Transition to oral anticoagulation. Given that this occurred in the setting of tamoxifen and a history of breast cancer, could make a case for lifelong anticoagulation. Recommend consultation with medical oncology as to whether or not tamoxifen should be continued or discontinued and they can make recommendations about duration of anticoagulation. Recommend the patient ambulate to ensure no significant symptoms with physical exertion prior to discharge 2. Pulmonary hypertension: Given the fact that her PA pressures are so signif icantly elevated, this does argue for some chronicity as an acute PE would be unlikely to cause PA pressures this high. Would recommend anticoagulation and repeating the echocardiogram in 3 months. No indication for additional pulmonary vasodilators at this point time. Would recommend diuresis to offload the right ventricle as tolerated by hemodynamics. Patient is at risk for development of chronic thromboembolic pulmonary hypertension - if PA pressures remain elevated after control of all contributing factors and adequate period of anticoagulation, consideration for right heart cath and V/Q scanning might be appropriate. Follow-up echocardiogram as noted above 3. Hypoxemia: Wean oxygen to maintain oxygen saturations at or above 92%. Recommend assessment for oxygen prior to discharge 4. Asthma: Not bronchospastic currently. No indication for steroids. Continue bronchodilators currently with as needed albuterol. 5. Sleep disordered breathing: Patient sleep study demonstrated an AHI of 23. Would recommend that in the outpatient setting when she is stable she return to the lab for dedicated titration study. Given her PE and hypoxemia, home auto titrating CPAP would not be recommended. Patient appears to be doing well clinically. Pulmonary will sign off. Patient can follow-up with Dr. Powell in the outpatient setting at discharge. Feel free to contact us with questions or concerns Admission and Anticipated Discharge Date Admission Date: May 21, 2024 Subjective Patient seen and examined. EMR reviewed. The patient's been transitioned off IV heparin to oral anticoagulation. She is doing well. She denies any chest pain. She does states that she develops some shortness of breath after she eats a meal. She has not had any nausea or vomiting. No syncope or presyncope. No significant lower extremity edema. She has not ambulated significantly as of yet. She does not use oxygen at home Review of Systems Review of Systems: All systems reviewed & are unremarkable except as noted in Subjective Physical Exam Constitutional: WD/WN, vitals as above Neck: trachea midline, no thyromegaly Respiratory: normal respiratory effort, lungs clear to auscultation Cardiovascular: RRR, no murmur, no edema Gastrointestinal (Abdomen): normal bowel sounds, soft, nontender, no hepatosplenomegaly Musculoskeletal: Extremities: extremities normal to inspection Skin: no rashes, warm and dry Lymphatic: no cervical lymphadenopathy Results & Data Results & Data Vital Signs (Past 12 Hours) Vital Signs Temp Pulse Pulse Resp BP Pulse Ox Pulse Ox 05/23/24 07:01 36.5 C 76 16 146/66 H 96 05/23/24 02:16 80 92 05/23/24 02:10 80 85 L 05/22/24 22:20 80 89 L O2 Del Method O2 Del Method O2 Flow Rate 05/23/24 07:01 Room Air 05/23/24 02:16 Nasal Cannula 1 05/23/24 02:10 Room Air 05/22/24 22:20 Room Air Critical Care Results & Data Vital Signs (Past 12 Hours) Vital Signs Temp Pulse Pulse Resp BP Pulse Ox Pulse Ox 05/23/24 07:01 36.5 C 76 16 146/66 H 96 05/23/24 02:16 80 92 05/23/24 02:10 80 85 L 05/22/24 22:20 80 89 L O2 Del Method O2 Del Method O2 Flow Rate 05/23/24 07:01 Room Air 05/23/24 02:16 Nasal Cannula 1 05/23/24 02:10 Room Air 05/22/24 22:20 Room Air Lab & Micro Results (Past 24 Hours) No Data to Display Na 140 mmol/L (136-145) 05/23/24 K 3.8 mmol/L (3.5-5.1) 05/23/24 Cl 104 mmol/L (98-107) 05/23/24 CO2 28 mmol/L (21-32) 05/23/24 Anion Gap 8 (3-11) 05/23/24 BUN 21 mg/dl (6-23) 05/23/24 Creatinine 1.40 mg/dl (0.6-1.2) H 05/23/24 BUN/Creatinine Ratio 15.0 (10-20) 05/23/24 Glu 98 mg/dl (70-99(Fasting)) 05/23/24 Ca 9.0 mg/dl (8.6-10.3) 05/23/24 Calcium Level 9.0 mg/dl (8.6-10.3) 05/23/24 06:27 I & O Totals 24 Hours 05/22/24 05/23/24 05/24/24 06:59 06:59 06:59 Intake Total 876.367 / 876.367 993.167 / 993.167 Output Total Balance 876.367 / 876.367 992.167 / 992.167 Cumulative 05/21/24 12:32 thru 05/22/24 22:40 Intake Total 1869.534 Output Total 1 Balance 1868.534 RT Ventilator Mngmt (Last Documented) Ventilator Ordered Settings Respiratory Rate 16 05/23/24 07:01 Ventilator - PT Measurements Respiratory Rate 16 PG Care Time/CCT Total # of Minutes Spent Total Time Spent with Patient: Total time spent is greater than 50% in coordination of care (as documented) at patient's floor/unit and/or counseling patient: Coding Level of Care Code 66959 SUB INP/OBS CARE 2/35MIN Diagnoses Pulmonary embolism I26.99 Pulmonary HTN I27.20 Asthma J45.909
[2024-05-23 10:29] VITALS: PULSE 81; O2SAT 97
--- NOTE | 2024-05-23 12:28 | Discharge Summary ---
Discharge Summary Date of Service May 23, 2024 Principal Dx & Hospital Course #1 = Principal Diagnosis (1) Bilateral pulmonary embolism: (2) Pulmonary HTN: (3) Acute hypoxic respiratory failure: (4) Demand ischemia of myocardium: (5) Suspected sleep apnea: (6) Asthma: (7) Obesity: (8) Hypothyroidism: (9) CKD (chronic kidney disease), stage III: (10) Nocturnal hypoxia: Plan Patient presented to the emergency room with increasing dyspnea. Imaging in the emergency room showed a bilateral pulmonary emboli and evidence of pulmonary hypertension. Patient was hypoxic and required oxygen. She was referred for admission. Patient with started on IV heparin and supported with oxygen. Pulmonary consultation was obtained. She was not a candidate for thrombolytic therapy. Reviewing the extensiveness of her pulmonary hypertension concerned that this may have been somewhat of a chronic in nature either due to chronic thromboembolic disease or potentially chronic nocturnal hypoxia. Patient did have outpatient sleep study-index for sleep apnea and sleep disordered breathing. The patient was transition from heparin to Eliquis. The cost for her was fairly significant. She is made aware of this. She was to continue on the Eliquis at this time using it for 1 month coupon and look into other potential assistance to get continue on the Eliquis. Due to the fact that she has a history of cancer and has been on tamoxifen then would recommend lifelong anticoagulation at this time. Patient was instructed to discuss with her oncologist risks and benefits of continuing tamoxifen. At this time she is hesitant to discontinue tamoxifen with her history of recurrent breast cancer. Patient underwent nocturnal pulse oximetry here in the hospital. She was hypoxic to qualify for home oxygen at night. Two-step oxygen testing during the day indicated that she remained with an adequate O2 sat at rest and with activity and did not require oxygen during the day when tested on the day of discharge. Patient be discharged home to continue Eliquis. She will wear oxygen at night. She will discuss ongoing treatments with tamoxifen with her oncologist and potentially PET scanning to rule out any occult reoccurrence of her cancer as a cause for her pulmonary emboli. She will follow-up with pulmonary to discuss ongoing evaluation and potential treatment for her sleep disordered nighttime breathing. Follow-up with her PCP with any other questions or concerns and for her routine care. Notes For Next Care Provider Follow-up with oncology Follow-up with pulmonary Echocardiogram in approximately 3 months to evaluate pulmonary hypertension May need referral to cardiology for right heart catheterization if remains with significant pulmonary pretension after interventions with treating embolic disease and nocturnal hypoxia. Medication Changes From Visit Eliquis for treatment of pulmonary emboli Oxygen 1 L at nighttime for nocturnal hypoxia Admission HPI Per Admitting Provider This is a 79yo F with a PMH of asthma and pulm HTN following with Dr. Powell, CKD III, history of breast cancer on tamoxifen, hypothyroidism and other medical problems listed below who presents with worsening SOB. Endorses worsening SOB over the past week and is significantly dyspneic after walking just 10 feet. Denies any recent URI, no cough or congestion, CP or palpitations. Receives primary care in [place] and follows with Dr. Powell for asthma. Had a CT chest in Mar 2024 that was concerning for Pulm HTN so echo performed 04/23/24 revealing normal systolic function with EF 55-60%, no wall motion abnormalities. RV moderately dilated with pressure severely increased at 75mmhg. Non-smoker. On tamoxifen for h/o breast cancer s/p bilateral mastectomy. Admission Exam Per Admitting Provider See H&P Discharge Exam Constitutional: Alert, no acute distress HEENT: Mucous membranes moist. Lungs: Clear to auscultation, decreased, no wheezes rales or rhonchi CV: S1-S2, regular Abdomen: Soft, nontender, nondistended Extremities: No significant edema Neuro: No focal deficits Psych: Cooperative, normal mood Updated Medication List Medication Instructions Recorded Confirmed Type Calcium/Vitamin D (Caltrate 600 1 tab PO BID ##0 05/24/11 05/21/24 History Plus *) Multivitamins/Minerals (Centrum *) 1 tab PO DAILY ##0 05/24/11 05/21/24 History albuterol 90 mcg/actuation aerosol 180 mcg inhalation Q6H PRN sob 01/02/2404/24 History inhaler atorvastatin 20 mg tablet 20 mg PO DAILY 01/02/24 05/21/24 History tamoxifen 20 mg tablet 20 mg PO DAILY 01/02/24 05/21/24 History losartan 100 mg tablet 100 mg PO HS 04/02/24 05/21/24 History montelukast 10 mg tablet 10 mg PO QPM #30 tabs 04/09/24 05/21/24 Rx (Singulair) budesonide 160 mcg-glycopyr 9 2 inh inhalation BID #10.7 grams 04/22/24 05/21/24 Rx mcg-formot 4.8 mcg/actuation HFA inhaler (Breztri Aerosphere) albuterol sulfate 2.5 mg/3 mL 2.5 mg inhalation DAILY PRN sob 05/21/24 05/21/24 History (0.083 %) solution for nebulization diclofenac sodium 1 % topical gel 2 g topical QID PRN Pain 05/21/24 05/21/24 History levothyroxine 125 mcg tablet 62.5 mcg PO MOWE@0700 05/21/24 05/21/24 History levothyroxine 125 mcg tablet 125 mcg PO SUTUTHFRSA@0700 05/21/24 05/21/24 History mometasone 50 mcg/actuation nasal 2 spray intranasal DAILY PRN 05/21/24 05/21/24 History spray allergies apixaban 5 mg (74 tabs) tablets in See Rx Instructions .Route 05/22/24 Rx a dose pack ([employer]) .COMPLEX #74 ea Hospital Stay Data Consultations 05/21/24 14:57 ED Decision to Admit Stat 05/21/24 16:41 Consult Pulmonology Routine 05/21/24 17:05 HIM [Consult Health Information Management] Stat Diagnostic Imagining Performed 05/21/24 14:14 CT for pulmonary embolism PE [CT angio chest PE protocol] Stat 05/21/24 16:40 US venous doppler LE Routine Reviewed imaging, laboratory and diagnostic studies. Pertinent findings as below. Ultrasound lower extremities negative for DVT Electrolytes within normal range Creatinine 1.4, stable Pending Results Patient Have Any Pending Studies at Discharge: No Discharge Instructions Given to Patient (Per Discharging Provider) Discussed with your oncologist risks and benefits of continuing tamoxifen and additional testing for occult cancer Strongly suggests lifelong anticoagulation Strongly recommend you wear oxygen at night follow-up with pulmonary to discuss additional sleep testing Discussed with your PCP follow-up echocardiogram in approximately 3 months Total Time Total Time Spent Total Time Spent (In Minutes): 40
== END 2024-05-23 13:44 | disposition home or self-care (01) | DRG 176 ==
LOC: ED 12:32 → SUATTDRO 16:35 → 4W 16:35 → 3N 05-22 18:12